=== PATIENT | male | born 1935 | race Caucasian/White ===

== ENCOUNTER → 2018-03-18 | Outpatient (CLI) | payer OTHER ==
[~2018-03-18] MED LIST: DIPH12.5S PO; DOCU1CAP39 PO; FAMO20 PO; FURO20 PEG; GADODIAMIDE PF 287 MG/ML 5 ML VIAL (for RAD MRI) IVCONTRAST ONE; HYDRA25 PO; LEVE500S TUBE; LISI10 PO; METO50TA PO; MIRA25TA PO; PHEN100S TUBE; PROS5TAB2 PO; RIVA20 PO; TAB-TAB PO; VESI5TAB PO
--- NOTE | 2018-03-18 15:25 | RADRPT ---
EXAM DATE/TIME: 03/18/2018 14:03 [facility] COMPARISON: CT BRAIN W/O CONTRAST, December 01, 2015, 16:58. MRI BRAIN W & W/O CONTRAST, November 22, 2015, 10:08 . INDICATIONS : Metastasis. CONTRAST: 15 cc Omniscan (gadodiamide) IV MEDICAL HISTORY : Skin cancer, Brain cancer. SURGICAL HISTORY : Brain sx, Right lung lobe. ENCOUNTER: Initial ACUITY: 1 day PAIN SCORE: Nonresponsive. LOCATION: Bilateral cranial TECHNIQUE: Multiplanar, multisequence MRI of the brain was performed both prior to and following the administrat ion of paramagnetic contrast. FINDINGS: CEREBRUM: The ventricles are prominent, similar to prior exam. 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 No abnormal enhancem ent at the craniotomy site. WHITE MATTER: Diffuse T2 prolongation in the supratentorial white matter and extending to the right craniotomy site . No abnormal white matter enhancement. POSTERIOR FOSSA: The cerebellum and brainstem are intact. The 4th ventricle is midline. The cerebellopontine angle is unremarkable. The cerebellar tonsils are normal in position. DIFFUSION IMAGING: No focal areas of restricted diffusion are seen. No evidence of acute infarction. EXTRACRANIAL: The visualized portions of the orbits and paranasal sinuses are unremarkable. POST-CONTRAST: No abnormal areas of parenchymal or dural enhancement. No evidence of blood-brain barrier breakdown. CONCLUSION: 1. No evidence of intracranial metastasis. 2. The stable appearance to the right parietal craniotomy site without evidence of mass effect or abn ormal enhancement. Lenny Alexander MD on March 18, 2018 at 15:18 Board Certified Radiologist. This report was verified electronically.
== END ==
LOC: HRAD 13:05
PROVIDERS: ATTEND Family Medicine Hospice and Palliative Medicine
DX: C79.9 Secondary malignant neoplasm of unspecified site (principal); C79.31 Secondary malignant neoplasm of brain; C80.1 Malignant (primary) neoplasm, unspecified
CPT/HCPCS: 70553; A9579